=== PATIENT | female | born 1965 | race Caucasian/White ===

== ENCOUNTER 2023-06-18 17:08 | Emergency (ER) | payer BC, SELFPAY ==
[2023-06-18 17:21] VITALS: BP 133/109; PULSE 84; RESP 16; TEMP 35.7; O2SAT 96; BMI 29.6
[2023-06-18 17:30] VITALS: BP 135/78; PULSE 87; RESP 19; O2SAT 96
--- NOTE | 2023-06-18 17:39 | ED_ITS ---
HPI - General Adult General Chief complaint: Chest Pain Stated complaint: Chest pain Time Seen by Provider: 06/18/23 17:39 History of Present Illness HPI narrative: Pt c/o right sided chest discomfort that started about 1 hour ago. Pain is coming and going. States this has happened in the past. Was on Pantoprazole for a while but hasnt been on that for a few months. 57-year-old woman here with complaint of chest pain. Just very uncomfortable. She can not affect the pain anyway. Does demonstrate by rubbing the upper sternal area. Has had similar pain in the past. Suspected to have reflux and was initiated on omeprazole which she has not taken for 2-3 months. This discomfort started about an hour and half ago. Seems to be waxing and waning in intensity. She winces as apparently sudden escalation in this pain in the upper sternal area. No shortness of breath. Not pleuritic. No leg pain or swelling. No fever. No cough. Has had for a number of weeks now a sensation of tension wrapping around her right upper abdomen to her back. No injury noted. Does have a history of what sounds like SVT and history of syncope with rates in the 280 range. Had a LINQ placed and this has now been removed. No leg pain or swelling. No radiating symptoms into extremities. No loss of sensation or weakness. Related Data Previous Rx's Medication Instructions Recorded famotidine 40 mg tablet 40 mg PO DAILY #30 tabs 06/18/23 famotidine 40 mg tablet 40 mg PO DAILY #30 tabs 06/18/23 Allergies Allergy/AdvReac Type Severity Reaction Status Date / Time No Known Drug Allergies Allergy Verified 06/18/23 17:27 Review of Systems Status of ROS: Reports: 6 or more systems reviewed and unremarkable except as noted in History and below [facility] Social History Smoking Status: Never smoker Do you use any of these nicotine containing products: None Second hand tobacco smoke exposure: No How often do you have a drink containing alcohol: monthly or less How many standard drinks containing alcohol do you have on a typical day: 1 or 2 How often do you have six or more drinks on one occasion: Never AUDIT-C Alcohol total score: 1 Non-prescribed substance use: denies use service: No Exam Narrative: Exam Narrative: Very pleasant. NAD. Brow furrowed in apparent discomfort. She is regularly massaging or rubbing the upper sternum. Breathing easily. Lungs appear to be clear. There is a linear intradermal abrasion at the left mid back. Nontender. Heart in regular rate and rhythm without murmur rub or gallop. Abdomen is a little overweight soft and nontender until rather deep palpation in the epigastrium. Not really tender in the right upper quadrant. No flank pain. Extremities are well perfused without edema. Const: Vital Signs, click to edit/add: Vital Signs - 24 hr 06/18/23 17:21 Temperature 96.3 F L Pulse Rate [Right Pulse Oximeter] 84 Respiratory Rate 16 Blood Pressure [Le ft Upper Arm] 133/109 H Pulse Oximetry 96 Oxygen Delivery Me thod Room Air Documenting provider has reviewed patient's vital signs: yes Course Vital Signs Vital signs: Initial Vital Signs Temperature 96.3 F L 06/18/23 17:21 Temperature Source Temporal Artery Scan 06/18/23 17:21 Pulse Rate 84 06/18/23 17:21 Pulse Rhythm Regular 06/18/23 17:21 Respiratory Rate 16 06/18/23 17:21 Blood Pressure 133/109 H 06/18/23 17:21 Blood Pressure Mean 117 H 06/18/23 17:21 Blood Pressure Position Supine 06/18/23 17:21 Pulse Oximetry 96 06/18/23 17:21 Oxygen Delivery Method Room Air 06/18/23 17:21 Vital Signs Temperature 96.3 F L 06/18/23 17:21 Pulse Rate 84 06/18/23 17:21 Respiratory Rate 16 06/18/23 17:21 Blood Pressure 133/109 H 06/18/23 17:21 Pulse Oximetry 96 06/18/23 17:21 Oxygen Delivery Method Room Air 06/18/23 17:21 Temperature 96.3 F L 06/18/23 17:21 Pulse Rate 78 06/18/23 18:45 Respiratory Rate 20 06/18/23 18:45 Blood Pressure 132/73 06/18/23 18:45 Pulse Oximetry 98 06/18/23 18:45 Oxygen Delivery Method Room Air 06/18/23 18:45 Medications Administered Medications: Discontinued Medications Generic Name Dose Route Start Last Admin Trade Name Freq PRN Reason Stop Dose Admin Famotidine 40 mg 06/18/23 18:42 06/18/23 18:50 Famotidine 20 Mg Tablet PO 06/18/23 18:43 40 mg ONCE ONE Administration Lidocaine HCl 7.5 ml 06/18/23 17:54 06/18/23 18:13 Lidocaine Hcl 4 % Top Soln 50 Ml Bottle PO 06/18/23 17:55 7.5 ml ONCE ONE Administration Lidocaine/Aluminum/Magnesium/Simeth 30 ml 06/18/23 17:54 06/18/23 18:13 Mag Hydrox/Aluminum Hyd/Simeth 30 Ml Oral.Susp PO 06/18/23 17:55 30 ml ONCE ONE Administration Medical Decision Making MDM Narrative Medical decision making narrative: Have already reviewed EKG by the time I am seeing Ms. Phillip. This shows normal sinus rhythm without acute ischemic abnormality. There is some baseline irritability. Rate of 87. Does not appear to be cardiac but certainly possible. Would recommend labs in this regard. Chest x-ray looking for pneumothorax. I draw some blood looking for pulmonary embolus. Evaluate for evidence of gallbladder dysfunction given her persistent discomfort in this area. This is though of longer standing duration. Also trial of GI cocktail. Instead of Pantoprazole would consider famotidine as needed in the future. Following GI cocktail, there was significant improvement in discomfort though still somewhat present. Would appear to be low risk for pulmonary embolus and ischemic cardiovascular event as well as vascular disruption/dissection. Normal vitals. Chest x-ray by my read looks normal. No pneumothorax. No infiltrate Labs are still pending and once though resulted negative initial troponin, their preference was to depart the emergency department. Had been waiting some time to be seen. We acknowledged lack of certainty and risk and labs still pending. Agreed to call with potentially concerning results. Given famotidine here in the emergency department prior to departure. See patient discharge plan Later did contact Ms. Phillip to discuss mildly elevated D-dimer. This is of uncertain significance. Scores 0 on Wells criteria. Was still improved with slight residual ache on our conversation later in the evening. Recommended still to be seen if this escalates again persistently not alleviated by [id number] measure, increasing pleuritic nature to her discomfort, shortness of air. Lab Data Lab results reviewed: Yes I reviewed the patient's lab results Labs: Lab Results 06/18/23 Range/Units 18:24 WBC 7.49 (4.50-11.00) K/uL RBC 4.82 (4.00-5.20) m/uL Hgb 13.1 (12.0-16.0) gm/dL Hct 41.0 (33.0-51.0) % MCV 85 (80-100) fL MCH 27 (26-34) pg MCHC 32 (32-36) gm/dL RDW Coeff of Naida 13.4 (11.5-15.5) % Plt Count 302 (140-440) K/uL Neut % (Auto) 68.5 (42.0-72.0) % Lymph % (Auto) 24.4 (20-44) % Hendry % (Auto) 6.7 (0.0-11.0) % Eos % (Auto) 0.0 (0.0-7.0) % Baso % (Auto) 0.1 (0.0-3.0) % Neut # (Auto) 5.13 (1.7-7.0) K/uL Lymph # (Auto) 1.83 (0.90-2.90) K/uL Hendry # (Auto) 0.50 (0.00-0.90) K/UL Eos # (Auto) 0.00 (0.00-0.50) K/uL Baso # (Auto) 0.01 (0.00-0.30) K/uL Abs Immat Gran (auto) 0.02 (0.00-0.30) K/uL Imm/Tot Granulo (auto) 0.3 % D-Dimer Quant (PE/DVT) 0.83 H (0.00-0.50) ug/ml Sodium 139 (135-149) mmol/L Potassium 3.6 (3.6-5.1) mmol/L Chloride 104 (96-114) mmol/L Carbon Dioxide 25 (20-32) mmol/L Anion Gap 10 (7-15) mEq/L BUN 18 (7-30) mg/dL Creatinine 0.5 (0.5-1.5) mg/dL Estimated Creat Clear 126.74 Estimated GFR 110 ml/min Glucose 116 H (60-115) mg/dL Calcium 8.9 (8.4-10.6) mg/dL Total Bilirubin 0.2 (0.1-1.5) mg/dL Direct Bilirubin 0.0 (0.0-0.5) mg/dL AST 19 (12-35) U/L ALT 21 (4-35) U/L Alkaline Phosphatase 74 (40-150) U/L Troponin I < 0.01 L (0.01-0.04) ng/mL C-Reactive Protein 0.8 (0.5-1.0) mg/dL NT-Pro-B Natriuret Pep 30 pg/mL Total Protein 7.5 (6.0-8.3) g/dL Albumin 4.5 (3.3-5.0) g/dL POC Troponin I 0.00 L (0.01-0.04) ng/ml Discharge Plan Discharge Clinical Impression: Atypical chest pain Patient Disposition: Home w/ Parent or Adult Condition: Improved Additional Instructions: Your initial troponin I was normal. This is your cardiac enzyme. It is possible that esophageal spasm is also playing a role in your discomfort particularly when it gets really tight and tense and painful. If this continues to occur you might benefit from longer-term medication for esophageal spasm/smooth muscle relaxation. I would follow-up with your primary care provider sooner than later to discuss this and further evaluation of your abdominal discomfort. Meanwhile I would take famotidine 20-40 mg daily for acid reduction. This is available [id number] in 20 mg caplets/tablets (can take 40 mg once or 20 mg twice a day) I did send in a prescription if you want to do it this way. For flares otherwise can take liquid antacid/anti-gas. Return for persistent, uncontrolled pain, increasing shortness of breath, lightheadedness. I will call you if there is anything abnormal or otherwise warrants discussion in your labs. Prescriptions: New famotidine 40 mg tablet 40 mg PO DAILY Qty: 30 0RF famotidine 40 mg tablet 40 mg PO DAILY Qty: 30 0RF Follow Up/Referrals: Provider,Not a Local [Primary Care Provider] - Stand Alone Forms: [facility] Info Instructions
[2023-06-18 17:45] VITALS: BP 134/93; PULSE 84; RESP 22; O2SAT 98
--- NOTE | 2023-06-18 17:54 | CRLHL7_ITS ---
For Patients: As a result of the Cures Act, medical imaging exams and procedure reports are released immediately into your electronic medical record. You may view this report before your referring provider. If you have questions, please contact your health care provider. INDICATION: Upper mid chest pain. TECHNIQUE: Chest 1 view(s) COMPARISON: None. FINDINGS: Cardiomediastinal silhouette and pulmonary vasculature are normal. No focal consolidation. Subcentimeter calcified granulomas in the right lower lung. No layering pleural effusion. No pneumothorax. No acute chest wall abnormality. IMPRESSION: No focal consolidation. Dictated by Jack Pruitt MD @ 06/18/2023 6:51:27 PM (Electronically Signed)
[2023-06-18 18:00] VITALS: BP 123/90; PULSE 79; O2SAT 98
[2023-06-18] MEDS: lidocaine HCL 4 % TOP SOLN 50 ML BOTTLE 7.5 ML PO (18:13)
[2023-06-18] MEDS: MAG HYDROX/ALUMINUM HYD/SIMETH 30 ML ORAL.SUSP PO (18:13)
[2023-06-18 18:30] VITALS: BP 130/77; PULSE 75; RESP 19; O2SAT 97
--- NOTE | 2023-06-18 18:35 | ED.NURSE ---
did take gi cocktail with vague relief of her cp. did not like the fact of not being able to swallow without the numb feeling. dr astorga in to see. the cp comes and goes.
[2023-06-18 18:45] VITALS: BP 132/73; PULSE 78; RESP 20; O2SAT 98
[2023-06-18] MEDS: FAMOTIDINE 20 MG TABLET 40 MG PO (18:50)
[2023-06-18 18:51] LABS: Basophils Absolute Auto 0.01 K/uL (0.00-0.30); Basophils Percent Auto 0.1 % (0.0-3.0); Hemoglobin* 13.1 gm/dL (12.0-16.0); Immature Granulocytes Abs Auto 0.02 K/uL (0.00-0.30); Immature Granulocytes Pct Auto 0.3 %; Lymphocytes Absolute Auto 1.83 K/uL (0.90-2.90); Lymphocytes Percent Auto 24.4 % (20-44); Mean Corpuscular HGB Conc 32 gm/dL (32-36); Mean Corpuscular Hemoglobin 27 pg (26-34); Mean Corpuscular Volume 85 fL (80-100); Monocytes Percent Auto 6.7 % (0.0-11.0); Neutrophils Absolute Auto 5.13 K/uL (1.7-7.0); Neutrophils Percent Auto 68.5 % (42.0-72.0); Platelet Count* 302 K/uL (140-440); RDW Coefficient of Variation % 13.4 % (11.5-15.5); Red Blood Count 4.82 m/uL (4.00-5.20); White Blood Count* 7.49 K/uL (4.50-11.00)
[2023-06-18 18:55] LABS: Slide Review Reflex No
[2023-06-18 19:05] LABS: Chloride* 104 mmol/L (96-114); Sodium* 139 mmol/L (135-149)
[2023-06-18 19:06] LABS: Albumin* 4.5 g/dL (3.3-5.0); Potassium* 3.6 mmol/L (3.6-5.1)
[2023-06-18 19:08] LABS: Anion Gap 10 mEq/L (7-15); Blood Urea Nitrogen* 18 mg/dL (7-30); Carbon Dioxide* 25 mmol/L (20-32); Creatinine* 0.5 mg/dL (0.5-1.5); Est. Creatinine Clearance* 126.74; Estimated Glomerular Filt Rate 110 ml/min
[2023-06-18 19:09] LABS: Aspartate Amino Transferase* 19 U/L (12-35); Bilirubin Total* 0.2 mg/dL (0.1-1.5); Calcium* 8.9 mg/dL (8.4-10.6); Glucose* 116 mg/dL (60-115); Total Protein* 7.5 g/dL (6.0-8.3)
[2023-06-18 19:10] LABS: Alanine Aminotransferase* 21 U/L (4-35); Alkaline Phosphatase* 74 U/L (40-150); D Dimer Quantitative* 0.83 ug/ml (0.00-0.50)
[2023-06-18 19:14] LABS: C Reactive Protein* 0.8 mg/dL (0.5-1.0)
[2023-06-18 19:22] LABS: Troponin I* < 0.01 ng/mL (0.01-0.04)
[2023-06-18 19:49] LABS: NT Pro B Type NatriureticPept* 30 pg/mL
== END 2023-06-18 19:15 | disposition home or self-care (01) ==
PROVIDERS: Emergency Provider Family Medicine
DX: R07.89 Other chest pain (principal)
CPT/HCPCS: 36415; 71045; 80048; 80076; 83880; 84484; 85025; 85379; 86140; 93005; 99284; 99285; A9270